=== PATIENT | female | born 1985 | race Caucasian/White ===

== ENCOUNTER 2018-01-26 11:53 | Inpatient (IN) | payer OTHER | END 2018-01-28 13:52 | disposition HB | DRG 774 | LOC: LDR 11:53 → OB/GYN 01-27 00:52 | PROC: 4A1HXCZ Monitoring of Products of Conception, Cardiac Rate, External Approach (ICD-10-PCS; 2018-01-26) | PROC: 0DQR0ZZ Repair Anal Sphincter, Open Approach (ICD-10-PCS; principal; 2018-01-27) | PROC: 0UQGXZZ Repair Vagina, External Approach (ICD-10-PCS; 2018-01-27) | PROC: 10E0XZZ Delivery of Products of Conception, External Approach (ICD-10-PCS; 2018-01-27) | PROC: 0W8NXZZ Division of Female Perineum, External Approach (ICD-10-PCS; 2018-01-27) | DX: O70.20 Third degree perineal laceration during delivery, unspecified (principal); O98.513 Other viral diseases complicating pregnancy, third trimester; O41.03X0 Oligohydramnios, third trimester, not applicable or unspecified; Z22.330 Carrier of Group B streptococcus; Z3A.39 39 weeks gestation of pregnancy; Z37.0 Single live birth ==

== ENCOUNTER 2019-04-06 15:30 | Inpatient (IN) | payer OTHER ==
[~2019-04-06] VITALS: Ht 167.6 cm; Wt 79.4 kg
[~2019-04-06 15:30] MED LIST: PRENATAL TABLE1 EAC1 PO; PROBIOTIC1 EAC1 PO; ROBITUSSIN COU237 M1 PO; ZITHROMAX500 MG PO
== END 2019-04-29 13:17 | disposition home or self-care (01) | DRG 807 ==
LOC: O/R 15:30 → SURG-SUITE 04-27 12:09 → LDR 04-27 12:09 → SURG-SUITE 04-27 23:23 → O/R 04-29 15:30
PROVIDERS: ADMIT Obstetrics & Gynecology
PROC: 10E0XZZ Delivery of Products of Conception, External Approach (ICD-10-PCS; principal; 2019-04-27)
PROC: 0KQM0ZZ Repair Perineum Muscle, Open Approach (ICD-10-PCS; 2019-04-27)
PROC: 0UQMXZZ Repair Vulva, External Approach (ICD-10-PCS; 2019-04-27)
PROC: 4A1HXCZ Monitoring of Products of Conception, Cardiac Rate, External Approach (ICD-10-PCS; 2019-04-27)
DX: O70.1 Second degree perineal laceration during delivery (principal); Z37.0 Single live birth; O71.82 Other specified trauma to perineum and vulva; Z3A.39 39 weeks gestation of pregnancy